=== PATIENT | female | born 1965 | race Two or more races ===

== ENCOUNTER 2017-03-03 14:43 | Emergency (ER) | payer OTHER ==
[~2017-03-03] VITALS: Ht 165.1 cm; Wt 63.5 kg
[2017-03-03] MEDS ORDERED: NEOMYCIN-BACITRACIN-POLYM UNITDOSE PKG TOP OINT TOP ONE (16:45)
[2017-03-03] MEDS ORDERED: SODIUM CHLORIDE 0.9% 1,000 ML IV ONE (16:45)
[2017-03-03 17:34] LABS: Basophils # (auto) 0.1 uL; Basophils % (auto) 0.9 % (0.0-2.0); Eosinophils # (auto) 0.1 uL; Eosinophils % (auto) 1.7 % (0.0-7.0); Hematocrit 36.5 % (36.0-46.0); Hemoglobin 12.5 g/dL (12.2-16.2); Lymphocytes # (auto) 2.3 uL; Lymphocytes % (auto) 25.3 % (10.0-50.0); Mean Corpuscular Hemoglobin 30.3 pg (28.0-32.0); Mean Corpuscular Hgb Conc. 34.1 g/dL (32.0-36.0); Mean Corpuscular Volume 88.8 fL (80.0-100.0); Mean Platelet Volume 8.8 fL (6.9-10.8); Monocytes # (auto) 0.7 uL; Neutrophils # (auto) 5.7 uL; Neutrophils % (auto) 64.1 % (37.0-80.0); Platelet Count (auto) 210 10^3/uL (140-450); Red Cell Distribution Width 15.4 % (11.8-14.3); White Blood Cell 8.9 10^3/uL (4.4-10.8)
[2017-03-03 18:00] LABS: Albumin 3.4 g/dL (3.4-5.0); Anion Gap 8 (5-15); Aspartate Aminotransferase 27 U/L (15-37); BUN/Creatinine Ratio 32.7; Blood Urea Nitrogen 16 mg/dL (7-18); Calcium 8.9 mg/dL (8.5-10.1); Carbon Dioxide 25 mmol/L (21-32); Chloride 109 mmol/L (98-107); GFR African American 171 mL/min; GFR Non-African American 142 mL/min; Glucose 87 mg/dL (74-106); Sodium 142 mmol/L (136-145)
[2017-03-03 18:03] LABS: Alkaline Phosphatase 94 U/L (45-117); Bilirubin, Total 0.4 mg/dL (0.2-1.0); Total Protein 6.9 g/dL (6.4-8.2)
[2017-03-03 18:13] LABS: Potassium 2.9 mmol/L (3.5-5.1)
[2017-03-03 18:27] LABS: Acetaminophen < 2.0 ug/mL (10-30); Salicylate 5.5 mg/dL (2.8-20.0)
[2017-03-03 19:59] LABS: Urine Bilirubin Negative (Negative); Urine Blood Negative /uL (Negative); Urine Color Yellow (Yellow); Urine Glucose Normal (Normal); Urine Ketone 2+ (Negative); Urine Mucus FEW (None Seen); Urine Nitrite Negative (Negative); Urine RBC 2 /hpf (0 - 4); Urine Squamous Epithelial Cell MANY /hpf (<5)
[2017-03-03] MEDS ORDERED: POTASSIUM CHL 10% (20 MEQ/15ML) 15ml ORAL SOLN PO ONE (20:30)
[2017-03-03] MEDS ORDERED: cefTRIAXone 1GM/50ML D5W 50 ML IV ONE (21:45)
[2017-03-04] MEDS ORDERED: ACETAMINOPHEN 500 MG TAB PO ONE ×2 (13:15→21:15)
[2017-03-04] MEDS ORDERED: HALOPERIDOL 5 MG TAB PO PRN (19:00)
[2017-03-04] MEDS ORDERED: HALOPERIDOL 1 MG TAB PO PRN (19:00)
[2017-03-04] MEDS: LORazepam 0.5 MG TAB PO PRN (20:12)
[2017-03-05] MEDS ORDERED: ACETAMINOPHEN 500 MG TAB PO ONE (09:00)
[2017-03-05] MEDS ORDERED: ACETAMINOPHEN 325 MG TAB PO ONE (19:15)
[2017-03-06] MEDS ORDERED: ACETAMINOPHEN 325 MG TAB PO ONE (07:06)
[2017-03-06] MEDS ORDERED: LORazepam 0.5 MG TAB ONE (09:05)
[2017-03-06] MEDS ORDERED: CIPROFLOXACIN HCL 500 MG TAB ONE (09:06)
[2017-03-06] MEDS: LORazepam 0.5 MG TAB PO PRN (09:19)
[2017-03-06] MEDS ORDERED: CIPROFLOXACIN HCL 500 MG TAB PO SCH (10:00)
[2017-03-06] MEDS ORDERED: ACETAMINOPHEN 500 MG TAB PO PRN (15:15)
[2017-03-06 20:21] VITALS: BP 113/89
== END 2017-03-06 20:41 | disposition short-term general hospital (02) ==
LOC: EDSEX 14:43 → ER 14:43 → EDBD 14:43 → ER 03-06 20:41
DX: S69.91XA Unspecified injury of right wrist, hand and finger(s), initial encounter (principal); E87.6 Hypokalemia; N39.0 Urinary tract infection, site not specified; E86.0 Dehydration; F19.10 Other psychoactive substance abuse, uncomplicated; R45.851 Suicidal ideations; J44.9 Chronic obstructive pulmonary disease, unspecified; F20.9 Schizophrenia, unspecified; F32.9 Major depressive disorder, single episode, unspecified; F41.9 Anxiety disorder, unspecified; F17.210 Nicotine dependence, cigarettes, uncomplicated; W01.0XXA Fall on same level from slipping, tripping and stumbling without subsequent striking against object, initial encounter; Y93.K1 Activity, walking an animal; Y92.89 Other specified places as the place of occurrence of the external cause; Y99.8 Other external cause status
CPT/HCPCS: 36415; 71010; 80053; 80307; 80320; 80329; 81001; 85025; 96361; 96365; 99285; J0696; J7030

== ENCOUNTER 2017-03-20 12:20 | Emergency (ER) | payer OTHER ==
[~2017-03-20] VITALS: Ht 162.6 cm; Wt 68.0 kg
[2017-03-20 12:50] VITALS: BP 142/90
== END 2017-03-20 17:00 | disposition left against medical advice (07) ==
LOC: EDBD 12:20 → ER 12:42
DX: M25.562 Pain in left knee (principal); M25.561 Pain in right knee; Z53.21 Procedure and treatment not carried out due to patient leaving prior to being seen by health care provider